=== PATIENT | female | born 1990 | race African-American/Black ===

== ENCOUNTER 2016-07-20 10:37 | Emergency (ER) | payer OTHER ==
[~2016-07-20 10:37] MED LIST: FLEXERIL10 MG PO; MOTRIN600 MG PO; NO MEDICATIONS
[2016-07-20 10:39] LABS: URINE SOURCE CLEAN CATCH
[2016-07-20 10:42] LABS: MICRO INDICATED? YES; URINE APPEARANCE CLEAR; URINE BILIRUBIN NEG (NEG); URINE BLOOD NEG (NEG); URINE COLOR YELLOW; URINE GLUCOSE NEG (NORM); URINE KETONE NEG (NEG); URINE LEUKOCYTE ESTERASE 1+ (NEG); URINE NITRATE NEG (NEG); URINE PROTEIN NEG (NEG); URINE SPECIFIC GRAVITY 1.015 (1.003-1.035); URINE UROBILINOGEN 0.2 MG/DL (NORM)
[2016-07-20 10:54] LABS: CULTURE INDICATED? YES; URINE BACTERIA 1+ (NEG); URINE RBC 0-2 /[HPF] (0-2); URINE SQUAMOUS EPITHELIAL CELL FEW /[HPF]; URINE WBC 0-2 /[HPF] (0-5)
[2016-07-22 02:42] LABS: CHLAMYDIA TRACH Not Detected (Not Detected); N GONOR Not Detected (Not Detected)
== END 2016-07-20 11:41 | disposition home or self-care (01) ==
LOC: SED 10:37
PROVIDERS: Nurse Practitioner
DX: B37.3 Candidiasis of vulva and vagina (principal)
CPT/HCPCS: 81003; 84703; 87086; 87210; 87491; 87591; 87808; 87905; 96372; 99284; J0696

== ENCOUNTER 2016-09-05 12:21 | Emergency (ER) | payer OTHER | END 2016-09-05 12:40 | disposition home or self-care (01) | LOC: SED 12:21 | DX: B37.3 Candidiasis of vulva and vagina (principal); F31.9 Bipolar disorder, unspecified | CPT/HCPCS: 99283 ==